=== PATIENT | male | born 1950 | race Caucasian/White ===

== ENCOUNTER → 2025-06-09 10:41 | Outpatient (CLI) | payer MEDICARE, OTHER, SELFPAY ==
--- NOTE | 2025-06-09 10:43 | DI.MRI.S_ITS ---
PROCEDURE: MR HEAD/BRAIN WO/W CON INDICATIONS: worsening mentation/memory changes, gait changes TECHNIQUE: Noncontrast axial T1 spin echo, axial T2 fast spin echo, sagittal and axial FLAIR, coronal T2 fast spin echo, axial gradient echo, axial diffusion and ADC through the brain. After the administration of contrast, axial and coronal and sagittal T1 spin echo with fat saturation through the brain. COMPARISON: None. FINDINGS: Image quality: Excellent. CSF spaces: Basal cisterns are patent. No extra-axial fluid collections. Ventricles are normal in size and shape. Brain: No midline shift. No intracranial bleeds or masses. No abnormal intracranial enhancement. There is cerebral volume loss for age. There is periventricular white matter chronic small vessel ischemic change. The brainstem appears normal. Diffusion-weighted images demonstrate no acute infarct. No chronic ischemic insults. Normal intravascular flow voids are present. Skull and face: Calvarial marrow is normal in signal. Orbits appear normal. Sinuses: Sinuses and mastoids appear mildly abnormal. There is a small left maxillary sinus air-fluid level 1/3 filling the sinus cavity volume. There is chronic appearing left greater than right mild mucosal thickening without mastoid air cell inflammation. IMPRESSION: 1. Mild atherosclerotic change within the deep white matter of each hemisphere. No evidence of mass, prior stroke, or acute/subacute ischemic injury. 2. Mild sinusitis, both mild acute and chronic. The acute sinusitis is located within the left maxillary sinus cavity and indicated by presence of a small air-fluid level in that area. Dictated by: John Oneill M.D. on 06/09/2025 at 13:14 Approved by: John Oneill M.D. on 06/09/2025 at 13:17
== END ==
LOC: MRI 10:42
PROVIDERS: PCP Family Medicine; Referring Provider Family Medicine; Visit Provider Family Medicine
DX: R41.3 Other amnesia (principal); J01.80 Other acute sinusitis; J32.8 Other chronic sinusitis
CPT/HCPCS: 70553; A9579